=== PATIENT | female | born 1980 | race Caucasian/White ===

== ENCOUNTER 2020-05-10 09:31 | Emergency (ER) | payer OTHER, SELFPAY ==
--- NOTE | 2020-05-10 09:35 | [facility].EDGENADL ---
ED Disposition Clinical Impression: Foreign body hand Qualifiers: Encounter type: initial encounter Laterality: right Qualified Code(s): S60.551A - Superficial foreign body of right hand, initial encounter Disposition: Home, Self-Care Condition on Discharge: Good Instructions: DI for Removal of Foreign Body From Skin Additional Instructions: Keflex as prescribed for 5 days. Return if fever, swelling, redness, red streaks, pus drainage, increasing pain. You may take Tylenol or ibuprofen for pain. Prescriptions: cephALEXin [Keflex 500mg Cap] 500 mg PO QID #20 cap Transmission Status: [id number] Referrals: PCP,No [Primary Care Provider] - - Critical Care Critical Care Time: No Attestation: On , the high probability of a clinically significant, sudden or life threatening deterioration of the following system(s) required my full and direct attention, intervention and personal management. The time I documented below is in addition to time spent performing reported procedures but includes the following listed in this critical care notation. Medical Decision Making - Boris Inquiry Pt receiving controlled substance: No Vital Signs: 05/10/20 09:40 05/10/20 10:19 Temperature 98.1 F 98.1 F Temperature Source Oral Oral Pulse Rate 86 Pulse Rate [Right Brachial] 94 H Respiratory Rate 17 16 Blood Pressure 124/80 Blood Pressure [Right Arm] 145/100 H Blood Pressure Mean [Right Arm] 115 Blood Pressure Source Automatic Cuff Blood Pressure Source [Right Arm] Automatic Cuff Blood Pressure Position Sitting Blood Pressure Position [Right Arm] Sitting 02 Sat by Pulse Oximetry 99 Oxygen Delivery Method Room Air Room Air Orders (Tests/Meds): ED MEDICATIONS Discontinued Medications Generic Name Dose Route Start Last Admin Trade Name Denisse PRN Reason Stop Dose Admin Cephalexin HCl 500 mg 05/10/20 09:49 05/10/20 09:53 Cephalexin 500mg Capsule PO 05/10/20 09:50 500 mg ONCE ONE Administration Protocol Lidocaine HCl 20 ml 05/10/20 09:48 05/10/20 09:53 Lidocaine 1% 20ml Mdv SQ 05/10/20 09:49 20 ml ONCE ONE Administration Tetanus/Reduced Diphtheria/Acell Pertussis 0.5 ml 05/10/20 09:49 05/10/20 09:53 Tet/Diphth/Pert-Adult 0.5ml Syringe IM 05/10/20 09:50 0.5 ml .ONCE ONE Administration General Adult HPI - General Stated complaint: ao @ 0900 injury to R hand Time Seen by Provider: 05/10/20 09:50 - History of Present Illness HPI narrative: While walking on steps with a wooden banister she impaled a foreign body into her right hand. She suspects it is a wood shard from the banister. It is present in her right first webspace. She is right-handed. Last tetanus immunization is unknown. - Related Data Previous Rx's Medication Instructions Recorded cephALEXin [Keflex 500mg Cap] 500 mg PO QID #20 cap 05/10/20 Allergies Allergy/AdvReac Type Severity Reaction Status Date / Time No Known Allergies Allergy Verified 05/10/20 09:44 [facility] History - Hepatitis A Screen Attestation statement:: This patient has been screened for Hepatitis A risk factors. I have reviewed the patient's past medical history: Yes ROS Obtained: Yes Systems reviewed as appropriate & no additional complaints - Neurologic Neurologic: Denies numbness, Denies weakness Physical Exam - General General appearance: alert, in no apparent distress - Respiratory Respiratory exam: Absent: respiratory distress - Cardiovascular Cardiovascular exam: Present: regular rate, normal rhythm - Extremities Exam Extremities exam: Present: normal capillary refill - Expanded Upper Extremity Exam Right Comment: Puncture wound present in the right hand first webspace with associated tenderness. The and of an apparent wood splinter is seen present at the puncture site. It feels as if it tracks towards the ulnar/cephalad direction. No erythema. Minimal
[2020-05-10 09:40] VITALS: BP 145/100; PULSE 94; RESP 17; TEMP 36.7; O2SAT 99; BMI 32.3
[2020-05-10 10:19] VITALS: BP 124/80; PULSE 86; RESP 16; TEMP 36.7; O2SAT 99
== END 2020-05-10 10:20 | disposition home or self-care (01) ==
PROVIDERS: Emergency Provider Emergency Medicine
DX: S60.551A Superficial foreign body of right hand, initial encounter (principal); W45.8XXA Other foreign body or object entering through skin, initial encounter; Y92.69 Other specified industrial and construction area as the place of occurrence of the external cause; Y99.0 Civilian activity done for income or pay; Z23 Encounter for immunization
CPT/HCPCS: 10120; 90715; 99282